=== PATIENT | female | born 1970 | race Caucasian/White ===

== ENCOUNTER 2021-02-14 13:12 | Day surgery (SDC) | payer MEDICARE, MEDICAID ==
[~2021-02-14] VITALS: Ht 170.2 cm; Wt 58.7 kg
[2021-02-14] VITALS (11 sets, daily range): BP systolic 112–137; BP diastolic 50–76
[2021-02-14] MEDS ORDERED: ringers solution, lacted 1,000 ML IV SCH ×2 (13:30→17:00)
[2021-02-14] MEDS ORDERED: famotidine 20mg tablet PO ONE (13:30)
[2021-02-14] MEDS ORDERED: OMEP40CA13 PO (13:58)
[2021-02-14] MEDS ORDERED: HYDR-3686 PO (13:58)
[2021-02-14] MEDS ORDERED: TRAZ-251 PO (13:58)
[2021-02-14] MEDS ORDERED: PRED20TA PO (13:58)
[2021-02-14] MEDS ORDERED: DULO30CA52 PO (13:58)
[2021-02-14] MEDS ORDERED: ASPI-1264 PO (13:59)
[2021-02-14 14:02] LABS: BASOPHILS % (AUTO) 0.2 % (0-1); EOSINOPHILS # (AUTO) 0.1 X10'3 (0-0.9); EOSINOPHILS % (AUTO) 0.6 % (0-6); LYMPHOCYTES # (AUTO) 4.7 X10'3 (1.1-4.8); LYMPHOCYTES % (AUTO) 30.1 % (21-51); MEAN CORPUSCULAR HEMOGLOBIN 30.7 PG (27.0-31.0); MEAN CORPUSCULAR HGB CONC 32.9 g/dL (33.0-36.5); MEAN CORPUSCULAR VOLUME 93.4 FL (78-98); MEAN PLATELET VOLUME 7.8 FL (7.4-10.4); MONOCYTES % (AUTO) 6.2 % (2-12); NEUTROPHILS # (AUTO) 9.9 X10'3 (1.8-7.7); NEUTROPHILS % (AUTO) 62.9 % (42-75); PRE OP HEMATOCRIT 39.6 % (35.0-45.0); PRE OP PLATELET COUNT 316 X10'3 (140-440); RED BLOOD COUNT 4.24 X10'6 (4.20-5.60); RED CELL DISTRIBUTION WIDTH 14.8 % (11.5-14.5)
[2021-02-14 14:10] LABS: ALBUMIN 3.6 G/DL (3.4-5.0); ALBUMIN/GLOBULIN RATIO 0.9 (1.1-1.5); ALKALINE PHOSPHATASE 66 IU/L (46-116); BLOOD UREA NITROGEN 17 MG/DL (7-18); BUN/CREATININE RATIO 21.8 (6.6-38.0); CALCIUM 9.1 MG/DL (8.5-10.1); CHLORIDE 100 MMOL/L (99-107); CREATININE 0.78 MG/DL (0.40-0.90); PRE OP ALT 21 U/L (30-65); PRE OP ANION GAP 5 (8-16); PRE OP AST 14 U/L (10-37); PRE OP BILIRUB, TOTAL 0.4 MG/DL (0.0-1.0); PRE OP GLUCOSE 90 MG/DL (70-104); PRE OP SODIUM 136 MMOL/L (135-145); TOTAL CARBON DIOXIDE 30.7 MMOL/L (24-32); TOTAL PROTEIN 7.6 G/DL (6.4-8.2); eGFR 78 ML/MIN
[2021-02-14 14:11] LABS: PRE OP POTASSIUM 3.7 MMOL/L (3.4-5.1)
[2021-02-14] MEDS ORDERED: ceFAZolin 2gm in dextrose, iso 50 ML IV ONE (14:20)
[2021-02-14 15:23] LABS: PRE OP PROTIME 10.4 SECONDS (9.0-12.0)
[2021-02-14] MEDS ORDERED: BUPIVAcaine/PF 2.5 mg/ml (0.25%) 30ml vial ONE (15:32)
[2021-02-14] MEDS ORDERED: LIDOcaine 1% W/epiNEPHrine 1:100,000 20ml vial ONE (15:32)
[2021-02-14] MEDS ORDERED: morphine 4 MG/ML inj SYRINge IV PRN (17:00)
[2021-02-14] MEDS ORDERED: morphine 2 MG/ML inj. syringe IV PRN (17:00)
[2021-02-14] MEDS ORDERED: ondansetron/PF 4mg/2ml inj IV PRN (17:00)
[2021-02-14] MEDS ORDERED: fentaNYL/PF 50MCG/1 ML 2ML syringe IV PRN ×2 (17:00)
[2021-02-14] MEDS ORDERED: hydrALAZINE 20mg/ml inj. IV PRN (17:00)
[2021-02-14] MEDS ORDERED: labetalol 20mg/4ml (5mg/ml) syringe IV PRN (17:00)
[2021-02-14] MEDS ORDERED: fentaNYL/PF 50MCG/1 ML 2ML syringe ONE (17:13)
[2021-02-14] MEDS ORDERED: LIDOcaine 2% (20mg/ml) 5ml vial ONE (17:13)
[2021-02-14] MEDS ORDERED: propofol inj 20 ML IV ONE (17:13)
[2021-02-14] MEDS ORDERED: ondansetron/PF 4mg/2ml inj ONE (17:42)
--- NOTE | 2021-02-14 18:20 | NUR ---
ADMITTED TO PACU FROM OR ACCOMPANIED BY ANESTHESIA. INTIAL PHYSICAL ASSESSMENT DONE AND RECORDED. REPORT RECEIVED FROM ANESTHESIA.
[2021-02-14] MEDS ORDERED: HYDROcodone/acetaminophen 10/325mg tab PO ONE (18:40)
[2021-02-14] MEDS ORDERED: ketorolac trometh. 30mg/ml inj. IV ONE (18:45)
[2021-02-14] MEDS ORDERED: acetaminophen 1,000mg/100ml IV 100 ML IV ONE (18:59)
[2021-02-14] MEDS ORDERED: acetaminophen 1,000mg/100ml IV 100 ML IV SCH (20:00)
--- NOTE | 2021-02-14 20:00 | NUR ---
DISCHARGE CRITERIA MET, DISCHARGE INSTRUCTIONS GIVEN, DEMONSTRATES VERBAL UNDERSTANDING. DISCHARGED HOME IN GOOD CONDITION. PRESCRIPTION GIVEN TO PT BY DR. BOYLE FOR PECOS. DISCHARGE INSTRUCTIONS REVIEWED WITH PT'S , WHO DEMONSTRATES UNDERSTANDING.
== END 2021-02-14 20:00 | disposition home or self-care (01) ==
LOC: PAS 13:12
PROVIDERS: ATTEND Surgery
DX: G44.89 Other headache syndrome (principal); Z20.822 Contact with and (suspected) exposure to COVID-19; Z79.899 Other long term (current) drug therapy; Z79.01 Long term (current) use of anticoagulants
CPT/HCPCS: 36415; 37609; 71045; 80053; 85025; 85610; 85730; 87426; 93005; J0131; J1885; J2001; J2270; J2405; J2704; J3010; J3490; A4215; A4618; A7000; J7120